=== PATIENT | female | born 1965 | race American Indian/Alaskan Native ===

== ENCOUNTER 2020-10-29 07:41 | Emergency (ER) | payer SELFPAY ==
--- NOTE | 2020-10-29 08:12 | Emergency Department Report ---
ED ENT HPI - General Chief complaint: Dental/Oral Stated complaint: THROAT PAIN Time Seen by Provider: 10/29/20 08:02 Source: patient Mode of arrival: Ambulatory Limitations: No Limitations - History of Present Illness Initial comments: 55-year-old -[place] female presents to the emergency room for concern for a hole in the roof of her mouth. Patient states that she was brushing her teeth when she looked in the back of her mouth and noticed on the left upper roof there is a red spot. Patient denies any trauma to her mouth. Patient reports a past medical history of asthma. She denies any pain. complaint: other -: This morning Severity scale (0 -10): 0 ED Dental HPI - General Chief complaint: Dental/Oral Stated complaint: THROAT PAIN Time Seen by Provider: 10/29/20 08:02 Source: patient Mode of arrival: Ambulatory Limitations: No Limitations ED Review of Systems ROS: Stated complaint: THROAT PAIN Other details as noted in HPI Comment: All other systems reviewed and negative ED Past Medical Hx - Past Medical History Previous Medical History?: Yes Hx Asthma: Yes - Social History Smoking Status: Never Smoker Substance Use Type: None ED Physical Exam - General Limitations: No Limitations General appearance: alert, in no apparent distress - Head Head exam: Present: atraumatic, normocephalic - Eye Eye exam: Present: normal appearance, PERRL - ENT ENT exam: Present: mucous membranes moist, other (Left upper posterior roof dime size blood blister. No tenderness to touch) - Neck Neck exam: Present: normal inspection, full ROM - Respiratory Respiratory exam: Absent: respiratory distress, accessory muscle use - Extremities Exam Extremities exam: Present: normal inspection - Back Exam Back exam: Present: normal inspection - Neurological Exam Neurological exam: Present: alert, oriented X3, normal gait - Psychiatric Psychiatric exam: Present: normal affect, normal mood - Skin Skin exam: Present: warm, dry, intact, normal color. Absent: rash ED Course Vital Signs 10/29/20 07:50 Temperature 99.0 F Pulse Rate 76 Respiratory 24 Rate Blood Pressure 175/86 O2 Sat by Pulse 99 Oximetry ED Medical Decision Making - Medical Decision Making 55-year-old -[place] female presents to the emergency room for concern for a hole in the roof of her mouth. Patient states that she was brushing her teeth when she looked in the back of her mouth and noticed on the left upper roof there is a red spot. Patient denies any trauma to her mouth. Patient reports a past medical history of asthma. She denies any pain. Patient is stable in no respiratory distress no swelling of her throat does have a blood blister to the roof of her mouth. Oropharynx is patent. Discussed with patient that it appears to be a blood blister. Discussed with patient that it most likely will reabsorb into the tissue of her mouth. Or it may burst and she may have some bleeding of the blister. Discussed with patient she can rinse her mouth out with nonalcoholic mouthwash. Follow-up with her primary care provider. Critical care attestation.: If time is entered above; I have spent that time in minutes in the direct care of this critically ill patient, excluding procedure time. ED Disposition Clinical Impression: Blood blister Disposition: DC-01 TO HOME OR SELFCARE Is pt being admited?: No Does the pt Need Aspirin: No Condition: Stable Additional Instructions: Blood blister should reabsorb into the tissue of your mouth. If it does not it may bleed as the blister has burst. Rinse your mouth out with mouthwash that contains no alcohol as they may irritate the roof of your mouth. If you start having any discomfort or pain he can take Tylenol. Follow-up with your primary care provider or dentist. Referrals: Your, primary care provider [Other] - 3-5 Days Forms: Work/School Release Form(ED)
[2020-10-29 08:25] VITALS: BP 128/73
== END 2020-10-29 08:22 | disposition home or self-care (01) ==
LOC: ED 07:41
DX: S10.12XA Blister (nonthermal) of throat, initial encounter (principal); J45.909 Unspecified asthma, uncomplicated; X58.XXXA Exposure to other specified factors, initial encounter; Y93.89 Activity, other specified; Y92.89 Other specified places as the place of occurrence of the external cause; Y99.8 Other external cause status
CPT/HCPCS: 99282